=== PATIENT | male | born 1995 | race Hispanic/Latino ===

== ENCOUNTER 2025-04-23 18:28 | Emergency (ER) | payer SELFPAY | END 2025-04-23 20:30 | disposition home or self-care (01) | LOC: CSHERS 18:28 | DX: S92.412A Displaced fracture of proximal phalanx of left great toe, initial encounter for closed fracture (principal); F17.200 Nicotine dependence, unspecified, uncomplicated; W22.8XXA Striking against or struck by other objects, initial encounter | CPT/HCPCS: 99283 ==

== ENCOUNTER 2025-05-01 20:17 | Emergency (ER) | payer SELFPAY ==
[2025-05-01 22:19] LABS: #Basophils 0.05 10x3/uL (0.0-0.2); #Eosinophils 0.79 10x3/uL (0.0-0.5); #Monocytes 0.49 10x3/uL (0.0-1.1); #Neutrophils 4.06 10x3/uL (1.5-8.4); %Basophils 0.6 % (0.0-2.0); %Eosinophils 9.5 % (0.0-6.0); %Lymphocytes 34.7 % (18.0-47.0); %Monocytes 5.9 % (0.0-10.0); %Neutrophils 49.1 % (40.0-75.0); Hematocrit 43.1 % (38.8-50.0); Hemoglobin 14.7 g/dL (13.5-17.5); Mean Corpuscular Hemoglobin 29.6 pg (27.0-33.0); Mean Corpuscular Volume 86.9 fL (81.2-95.1); Platelet Count 320 10x3/uL (150-450); Red Blood Cell (RBC) Count 4.96 10x6/uL (4.32-5.72); White Blood Cell (WBC) Count 8.29 10x3/uL (3.5-10.5)
== END 2025-05-01 22:40 | disposition home or self-care (01) ==
LOC: CSHERS 20:17
DX: S90.212A Contusion of left great toe with damage to nail, initial encounter (principal); S80.12XA Contusion of left lower leg, initial encounter; R23.3 Spontaneous ecchymoses; F17.290 Nicotine dependence, other tobacco product, uncomplicated; W19.XXXA Unspecified fall, initial encounter
CPT/HCPCS: 36415; 85025; 99283